=== PATIENT | male | born 1960 | race Caucasian/White ===

== ENCOUNTER 2016-10-20 07:04 | Emergency (ER) | payer SELFPAY ==
--- NOTE | 2016-10-20 07:17 | ED.PDOC ---
History of Present Illness - General Chief Complaint: Chest Pain/PR Time Seen by Provider: 10/20/16 07:07 Source: patient Exam Limitations: no limitations - History of Present Illness Initial Comments: Patient presents with palpitations for 2 hours. He had an AMI in 2008 and received two stents. He denies any chest pain. He takes Coreg and Plavix but has run out of these. Plavix is for the stents. He thinks he is on a medication for hyperlipidemia. Is not diabetic. He denies any hx of bipedal edema. He says he does drink daily. The last drink was yesterday. No dyspnea. No other symptoms. Timing/Duration: 1-3 hours Severity: moderate Improving Factors: nothing Worsening Factors: nothing Associated Symptoms: denies symptoms Allergies/Adverse Reactions: Allergies NO KNOWN ALLERGY Allergy (Verified 10/20/16 07:05) Home Medications: Ambulatory Orders Aspirin [Baby Aspirin] 81 mg PO AC 10/20/16 Clopidogrel Bisulfate [Plavix] 75 mg PO AC 10/20/16 Review of Systems - Review of Systems Constitutional: States: no symptoms reported EENTM: States: no symptoms reported Respiratory: States: no symptoms reported Cardiology: States: see HPI Gastrointestinal/Abdominal: States: no symptoms reported Genitourinary: States: no symptoms reported Musculoskeletal: States: no symptoms reported Skin: States: no symptoms reported Neurological: States: no symptoms reported Endocrine: States: no symptoms reported Hematologic/Lymphatic: States: no symptoms reported Family Medical History - Family History Mother Family History: Unknown Physical Exam - Physical Exam General Appearance: Alert Eye Exam: bilateral normal Ears, Nose, Throat: normal ENT inspection Neck: non-tender, full range of motion, supple Respiratory: lungs clear Cardiovascular/Chest: tachycardia Gastrointestinal/Abdominal: normal bowel sounds, non tender, soft Extremity: normal inspection, no pedal edema Skin Exam: normal color Progress - Progress Progress: 10/20/16 07:18 ekg read by me showed sinus tachycardia. No ST changes nor T wave inversions. No LBBB. ASA 324 mg po x one. 10/20/16 11:29 CT ab/pelvis showed colitis, possibly ischemic. Patient admitted for bowel rest and antibiotics. Laboratory Tests 10/20/16 10/20/16 10/20/16 07:25 07:25 07:25 WBC 7.2 RBC 5.44 Hgb 18.0 Hct 52.8 H MCV 97.0 H MCH 33.1 H MCHC 34.1 RDW 14.0 Plt Count 161 MPV 10.0 Absolute Neuts (auto) 4.60 Absolute Lymphs (auto) 1.90 Absolute Monos (auto) 0.60 Absolute Eos (auto) 0.10 Absolute Basos (auto) 0.10 Neutrophils % 63.1 Lymphocytes % 26.1 Monocytes % 8.6 Eosinophils % 1.1 Basophils % 1.1 PT INR PTT (SP) Sodium 140 Potassium 2.9 L Chloride 105 Carbon Dioxide 23 Anion Gap 14.9 BUN 13 Creatinine 1.16 BUN/Creatinine Ratio 11.2 Random Glucose 157 H Serum Osmolality 282.8 Calcium 9.4 Total Bilirubin 1.1 H AST 29 ALT 23 Alkaline Phosphatase 61 Creatine Kinase 75 CK-MB (CK-2) 1.8 CK-MB (CK-2) % Not Reportable Troponin I 0.03 B-Natriuretic Peptide 22.6 Serum Total Protein 7.5 Albumin 4.5 Globulin 3.0 Albumin/Globulin Ratio 1.5 TSH Thyroxine (T4) Urine Color Urine Appearance Urine pH Ur Specific [place] Urine Protein Urine Glucose (UA) Urine Ketones Urine Blood Urine Nitrite Urine Bilirubin Urine Urobilinogen Ur Leukocyte Esterase Urine RBC Urine WBC Ur Epithelial Cells Calcium Oxalate Crystal Urine Bacteria Urine Mucus Urine Opiates Screen Urine Barbiturates Ur Phencyclidine Scrn U Amphetamin/Meth Scrn U Benzodiazepines Scrn U Cocaine Metab Screen U Cannabinoids Screen 10/20/16 10/20/16 10/20/16 07:25 07:25 08:50 WBC RBC Hgb Hct MCV MCH MCHC RDW Plt Count MPV Absolute Neuts (auto) Absolute Lymphs (auto) Absolute Monos (auto) Absolute Eos (auto) Absolute Basos (auto) Neutrophils % Lymphocytes % Monocytes % Eosinophils % Basophils % PT 9.8 INR 0.870 PTT (SP) 29.8 Sodium Potassium Chloride Carbon Dioxide Anion Gap BUN Creatinine BUN/Creatinine Ratio Random Glucose Serum Osmolality Calcium Total Bilirubin AST ALT Alkaline Phosphatase Creatine Kinase CK-MB (CK-2) CK-MB (CK-2) % Troponin I B-Natriuretic Peptide Serum Total Protein Albumin Globulin Albumin/Globulin Ratio TSH 3.12 Thyroxine (T4) 6.33 Urine Color Urine Appearance Urine pH Ur Specific [place] Urine Protein Urine Glucose (UA) Urine Ketones Urine Blood Urine Nitrite Urine Bilirubin Urine Urobilinogen Ur Leukocyte Esterase Urine RBC Urine WBC Ur Epithelial Cells Calcium Oxalate Crystal Urine Bacteria Urine Mucus Urine Opiates Screen Positive H Urine Barbiturates Negative Ur Phencyclidine Scrn Negative U Amphetamin/Meth Scrn Negative U Benzodiazepines Scrn Negative U Cocaine Metab Screen Negative U Cannabinoids Screen Negative 10/20/16 10/20/16 08:50 09:29 WBC RBC Hgb Hct MCV MCH MCHC RDW Plt Count MPV Absolute Neuts (auto) Absolute Lymphs (auto) Absolute Monos (auto) Absolute Eos (auto) Absolute Basos (auto) Neutrophils % Lymphocytes % Monocytes % Eosinophils % Basophils % PT INR PTT (SP) Sodium Potassium Chloride Carbon Dioxide Anion Gap BUN Creatinine BUN/Creatinine Ratio Random Glucose Serum Osmolality Calcium Total Bilirubin AST ALT Alkaline Phosphatase Creatine Kinase 70 CK-MB (CK-2) 1.8 CK-MB (CK-2) % Not Reportable Troponin I 0.02 B-Natriuretic Peptide Serum Total Protein Albumin Globulin Albumin/Globulin Ratio TSH Thyroxine (T4) Urine Color Yellow Urine Appearance Sl cloudy Urine pH 6.0 Ur Specific [place] 1.025 Urine Protein Trace Urine Glucose (UA) Negative Urine Ketones Trace Urine Blood Small H Urine Nitrite Negative Urine Bilirubin Small H Urine Urobilinogen 0.2 Ur Leukocyte Esterase Negative Urine RBC 5-10 H Urine WBC 1-3 Ur Epithelial Cells 3-5 Calcium Oxalate Crystal 1+ Urine Bacteria Rare Urine Mucus Small Urine Opiates Screen Urine Barbiturates Ur Phencyclidine Scrn U Amphetamin/Meth Scrn U Benzodiazepines Scrn U Cocaine Metab Screen U Cannabinoids Screen Departure - Departure Clinical Impression: Colitis Disposition: Admit Patient Condition: Good Departure Forms: ED Discharge - Pt. Copy, Patient Portal Self Enrollment Diet: other - as per hospitalist Activity: other - as per hospitalist Home Medications: Ambulatory Orders Aspirin [Baby Aspirin] 81 mg PO AC 10/20/16 Clopidogrel Bisulfate [Plavix] 75 mg PO AC 10/20/16
[2016-10-20] MEDS ORDERED: ASPIRIN (CHEWABLE) 81 MG TAB PO ONE (07:18)
--- NOTE | 2016-10-20 07:31 | RAD ---
Chest one view Palpitations IMPRESSION: Normal heart size. Lungs are clear. No acute chest process Electronically signed by: Joey Willett MD 10/20/2016 7:30 AM CDT
[2016-10-20 10:24] VITALS: TEMP 98; O2SAT 98
[2016-10-20] MEDS ORDERED: POTASSIUM CHLORIDE ELIXIR 20 MEQ/15 ML UD PO ONE (11:08)
[2016-10-20 16:49] VITALS: BP 147/100
== END 2016-10-20 11:55 | disposition home or self-care (01) ==
LOC: ER 07:04
DX: R00.0 Tachycardia, unspecified (principal); K52.9 Noninfective gastroenteritis and colitis, unspecified; I10 Essential (primary) hypertension; R31.9 Hematuria, unspecified; I25.2 Old myocardial infarction; Z98.61 Coronary angioplasty status; Z79.02 Long term (current) use of antithrombotics/antiplatelets; Z79.82 Long term (current) use of aspirin

== ENCOUNTER 2018-07-25 13:03 | Emergency (ER) | payer SELFPAY ==
[2018-07-25] MEDS ORDERED: NITROGLYCERIN 0.4 MG 25 EA TAB SL ONE (13:07)
[2018-07-25] MEDS ORDERED: ASPIRIN (CHEWABLE) 81 MG TAB PO ONE (13:07)
--- NOTE | 2018-07-25 13:09 | ED.PDOC ---
History of Present Illness - General Chief Complaint: Chest Pain/[place] Stated Complaint: Chest discomfort Time Seen by Provider: 07/25/18 13:06 Source: patient Exam Limitations: no limitations - History of Present Illness Initial Comments: Jaswant Stiles 57 y/o male came to ER with intermittent achy feeling on his chest for the last one week relieved by rest and leaning over .Denies SOB dizziness ,diaphoresis,nausea/vomiting.Stated this am avhy feeling radiated to left shoulder blade.Had UT -2008 2 cardiac stents placed in [place], [place].Also echocardiogram done at his [facility] office which was normal. Timing/Duration: 1 week Severity: moderate Location: central Activities at Onset: activity Prior Chest Pain/Cardiac Workup: other - see hpi Improving Factors: rest Worsening Factors: nothing Nitro Today/Relief: 0.4 mg x 1 Aspirin Treatment Today: 81 mg x 4 Associated Symptoms: other - see hpi Allergies/Adverse Reactions: Allergies NO KNOWN ALLERGY Allergy (Verified 10/20/16 07:05) Home Medications: Ambulatory Orders Aspirin [Baby Aspirin] 81 mg PO DAILY 10/20/16 Clopidogrel Bisulfate [Plavix] 75 mg PO DAILY 10/20/16 Carvedilol 12.5 mg PO BID 07/25/18 Ramipril [Altace] 10 mg PO DAILY 07/25/18 Rosuvastatin Calcium 10 mg PO DAILY 07/25/18 Review of Systems - Review of Systems Constitutional: States: no symptoms reported EENTM: States: no symptoms reported Respiratory: States: no symptoms reported Cardiology: States: see HPI Gastrointestinal/Abdominal: States: no symptoms reported Genitourinary: States: no symptoms reported Musculoskeletal: States: no symptoms reported Skin: States: no symptoms reported All other Systems: Reviewed and Negative, No Change from Baseline Past Medical History (General) - Patient Medical History Hx Seizures: No Hx Stroke: No Hx Dementia: No Hx Asthma: No Hx of COPD: No Hx Cardiac Disorders: Yes - [place] 2008 Hx Congestive Heart Failure: No Hx Pacemaker: No Hx Hypertension: No Hx Thyroid Disease: No Hx Diabetes: No Hx Gastroesophageal Reflux: Yes Hx Renal Disease: No Hx of HIV: No Hx MRSA: No Surgical History: other - cardiac stent - Social History Hx Tobacco Use: No Hx Alcohol Use: No Hx Physical Abuse: No Hx Emotional Abuse: No Family Medical History - Family History Mother Family History: Unknown Hx Family Cancer: Yes - Dad-Lung;Mom-ovarian Father Living Status: Cause of : Lung CA Physical Exam - Physical Exam General Appearance: Alert, Comfortable, No apparent distress Eyes, Ears, Nose, Throat Exam: normal ENT inspection Neck: non-tender, supple, normal inspection Respiratory: chest non-tender, lungs clear, normal breath sounds Cardiovascular/Chest: normal peripheral pulses, regular rate, rhythm, no murmur Gastrointestinal/Abdominal: non tender, soft, no organomegaly Extremity: normal inspection, no calf tenderness Neurologic: alert, oriented x 3 Skin Exam: normal color, warm/dry Lymphatic: no adenopathy Progress - Progress Progress: 07/25/18 14:32 Vital Signs - 8 hr 07/25/18 13:03 Temperature 98.3 F Pulse Rate [ 73 Right Radial] Respiratory 20 Rate Blood Pressure 166/112 [Right Arm] O2 Sat by Pulse 100 Oximetry 07/25/18 14:59 D/W Dr. Pat-Burr Bench Operator for transfer;Also discuss test results with patient and recommended transfer to higher level of care agreed with plan - Results/Orders Results/Orders: 07/25/18 13:07 URINALYSIS Stat 07/25/18 13:09 IV Care:Saline Lock per Protoc QSHIFT 07/25/18 13:15 EKG STAT 07/25/18 14:30 Heparin Premix [Heparin/D5w 25,000U/500ML] 25,000 units Premix Bag 1 bag IVS PRN Laboratory Results - last 24 hr 07/25/18 13:19 WBC 7.4 RBC 4.40 L Hgb 14.2 Hct 42.0 MCV 95.5 H MCH 32.4 H MCHC 33.9 RDW 13.6 Plt Count 188 MPV 9.6 Absolute Neuts (auto) 5.50 Absolute Lymphs (auto) 1.20 Absolute Monos (auto) 0.50 Absolute Eos (auto) 0.10 Absolute Basos (auto) 0.10 Neutrophils % 74.9 Lymphocytes % 16.3 L Monocytes % 6.8 Eosinophils % 0.8 L Basophils % 1.2 PT 9.9 INR 0.99 PTT (SP) 24.0 Sodium 138 Potassium 4.0 Chloride 107 Carbon Dioxide 22 Anion Gap 13.0 BUN 10 Creatinine 1.30 BUN/Creatinine Ratio 7.7 L Random Glucose 129 H Serum Osmolality 276.4 Calcium 9.1 Magnesium 1.9 Total Bilirubin 0.6 Direct Bilirubin 0.1 Indirect Bilirubin 0.5 AST 27 ALT 25 Alkaline Phosphatase 48 Creatine Kinase 71 CK-MB (CK-2) 2.9 CK-MB (CK-2) % Not Reportable Troponin I 0.13 H* Serum Total Protein 6.9 Albumin 4.3 - EKG/XRAY/CT EKG: Sinus, ST depression Comments: HR-64 XRAY: chest - negative exam Departure - Departure Clinical Impression: Chest pain due to coronary artery disease, Unstable angina Time of Disposition: 14:59 Disposition: Transfer to Hospital Condition: Fair Departure Forms: Patient Portal Self Enrollment Referrals: Torrey Reddy MD [Primary Care Provider] - 1-2 Weeks Home Medications: Ambulatory Orders Aspirin [Baby Aspirin] 81 mg PO DAILY 10/20/16 Clopidogrel Bisulfate [Plavix] 75 mg PO DAILY 10/20/16 Carvedilol 12.5 mg PO BID 07/25/18 Ramipril [Altace] 10 mg PO DAILY 07/25/18 Rosuvastatin Calcium 10 mg PO DAILY 07/25/18 Transfer to Outside Facility - Transfer Information Accepting Facility: [facility] 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
--- NOTE | 2018-07-25 13:29 | RAD ---
EXAM DESCRIPTION: Chest,1 View CLINICAL HISTORY: pain COMPARISON: October 20, 2016 FINDINGS: The cardiomediastinal silhouette is unremarkable. There is no airspace consolidation or pleural effusion. The bronchovascular markings are within normal limits, and the lungs are not hyperinflated. There is no pneumothorax or acute fracture. IMPRESSION: Negative exam. Electronically signed by: Ruben Short MD 07/25/2018 1:26 PM CDT
[2018-07-25] MEDS ORDERED: HEPARIN PREMIX 500 ML ONE (14:18)
[2018-07-25] MEDS ORDERED: HEPARIN SODIUM (PORCINE) 10,000 UNITS/ML VIAL ONE (14:25)
[2018-07-25] MEDS ORDERED: HEPARIN SODIUM (PORCINE) 5,000 U/ML VIAL IV ONE (14:26)
[2018-07-25] MEDS ORDERED: HEPARIN PREMIX 25,000 UNITS in PREMIX BAG 1 BAG IVS SCH (14:30)
[2018-07-25 16:58] VITALS: BP 155/108; TEMP 97.6; O2SAT 96
== END 2018-07-25 16:56 | disposition short-term general hospital (02) ==
LOC: ER 13:03
DX: I25.110 Atherosclerotic heart disease of native coronary artery with unstable angina pectoris (principal); I25.2 Old myocardial infarction; K21.9 Gastro-esophageal reflux disease without esophagitis; Z95.5 Presence of coronary angioplasty implant and graft; Z79.82 Long term (current) use of aspirin; Z79.899 Other long term (current) drug therapy
CPT/HCPCS: 36415; 71045; 80048; 80076; 82550; 82553; 84484; 85025; 85610; 85730; 93005; J1644